=== PATIENT | female | born 1940 | race Caucasian/White ===

== ENCOUNTER 2016-07-27 10:59 | Outpatient (CLI) | payer MEDICARE, OTHER | END 2016-07-27 11:00 | disposition home or self-care (01) | DX: E78.2 Mixed hyperlipidemia (principal); I10 Essential (primary) hypertension; Z79.899 Other long term (current) drug therapy ==

== ENCOUNTER 2016-08-08 13:37 | Outpatient (CLI) | payer MEDICARE, OTHER | END 2016-08-08 13:38 | disposition home or self-care (01) | DX: Z78.0 Asymptomatic menopausal state (principal) ==

== ENCOUNTER 2016-08-08 13:39 | Outpatient (CLI) | payer MEDICARE, OTHER | END 2016-08-08 13:40 | disposition home or self-care (01) | DX: Z12.31 Encounter for screening mammogram for malignant neoplasm of breast (principal); Z80.3 Family history of malignant neoplasm of breast ==

== ENCOUNTER 2016-11-17 19:16 | Outpatient (CLI) | payer MEDICARE, OTHER ==
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
== END 2016-11-17 19:17 | disposition home or self-care (01) ==
LOC: DI 19:16
PROVIDERS: ATTEND Chiropractor
DX: M50.321 Other cervical disc degeneration at C4-C5 level (principal); M47.892 Other spondylosis, cervical region; M51.36 Other intervertebral disc degeneration, lumbar region; M47.896 Other spondylosis, lumbar region; M47.897 Other spondylosis, lumbosacral region
CPT/HCPCS: 72040; 72100

== ENCOUNTER 2017-08-18 13:35 | Outpatient (CLI) | payer MEDICARE, OTHER ==
[2017-08-18 14:32] LABS: EOSINOPHILS # (AUTO) 0.2 10^3/uL (0.0-0.7); EOSINOPHILS % (AUTO) 3.5 %; HGB - HEMOGLOBIN 12.8 g/dL (12.0-16.0); LYMPHOCYTES # (AUTO) 1.3 10^3/uL (1.5-3.5); LYMPHOCYTES % (AUTO) 28.7 %; MEAN CORPUSCULAR HEMOGLOBIN 32.8 pg (27.0-31.0); MEAN CORPUSCULAR HGB CONC 34.1 g/dL (32.0-36.0); MEAN CORPUSCULAR VOLUME 96.3 fL (81.0-99.0); MEAN PLATELET VOLUME 7.6 fL (7.9-10.8); MONOCYTES # (AUTO) 0.5 10^3/uL (0.0-1.0); MONOCYTES % (AUTO) 11.4 %; NEUTROPHILS # (AUTO) 2.5 10^3/uL (1.5-6.6); NEUTROPHILS % (AUTO) 55.4 %; PLT - PLATELET COUNT 326 10^3/uL (130-450); RED CELL DISTRIBUTION WIDTH 13.6 % (12.0-15.0); WHITE BLOOD COUNT 4.6 x10^3/uL (4.8-10.8)
[2017-08-18 14:51] LABS: ALBUMIN 3.9 g/dL (3.2-5.5); ALKALINE PHOSPHATASE 60 IU/L (42-121); ALT ALANINE AMINOTRANSFERASE 23 IU/L (10-60); AST ASPARTATE AMINOTRANSFERASE 26 IU/L (10-42); BUN - BLOOD UREA NITROGEN 21 mg/dL (6-20); CALCIUM 9.6 mg/dL (8.5-10.3); CARBON DIOXIDE - CO2 26 mmol/L (21-32); CHLORIDE 100 mmol/L (101-111); CHOL/HDL RATIO 2.4 (<4.4); CHOLESTEROL 198 mg/dL; GFR - MDRD 54 (>89); GLUCOSE 94 mg/dL (70-100); HDL CHOLESTEROL 83 mg/dL; LDL CHOLESTEROL,CALCULATED 106 mg/dL; LDL/HDL RATIO 1.3 (<4.4); SODIUM 136 mmol/L (135-145); TOTAL PROTEIN 7.8 g/dL (6.7-8.2); VLDL CHOLESTEROL 9 mg/dL
== END 2017-08-18 13:36 | disposition home or self-care (01) ==
LOC: LAB 13:35
PROVIDERS: ATTEND Nurse Practitioner Primary Care
DX: I10 Essential (primary) hypertension (principal); E78.5 Hyperlipidemia, unspecified; Z79.899 Other long term (current) drug therapy
CPT/HCPCS: 36415; 80053; 80061; 83721; 84443; 85025

== ENCOUNTER 2018-08-14 09:15 | Outpatient (CLI) | payer MEDICARE, OTHER ==
[2018-08-14 18:16] LABS: BASOPHILS # (AUTO) 0.1 10^3/uL (0.0-0.1); BASOPHILS % (AUTO) 3.2 %; EOSINOPHILS # (AUTO) 0.1 10^3/uL (0.0-0.7); EOSINOPHILS % (AUTO) 2.6 %; LYMPHOCYTES % (AUTO) 23.8 %; MEAN CORPUSCULAR HGB CONC 32.5 g/dL (32.0-36.0); MEAN CORPUSCULAR VOLUME 98.4 fL (81.0-99.0); MEAN PLATELET VOLUME 8.2 fL (7.9-10.8); MONOCYTES # (AUTO) 0.4 10^3/uL (0.0-1.0); MONOCYTES % (AUTO) 8.7 %; NEUTROPHILS # (AUTO) 2.6 10^3/uL (1.5-6.6); NEUTROPHILS % (AUTO) 61.7 %; PLT - PLATELET COUNT 275 10^3/uL (130-450); RED BLOOD COUNT 4.07 10^6/uL (4.20-5.40); RED CELL DISTRIBUTION WIDTH 13.6 % (12.0-15.0); WHITE BLOOD COUNT 4.2 x10^3/uL (4.8-10.8)
[2018-08-14 18:51] LABS: ALBUMIN 3.9 g/dL (3.2-5.5); ALBUMIN/GLOBULIN RATIO 1.1 (1.0-2.2); ALKALINE PHOSPHATASE 65 IU/L (42-121); ALT ALANINE AMINOTRANSFERASE 23 IU/L (10-60); AST ASPARTATE AMINOTRANSFERASE 32 IU/L (10-42); BUN - BLOOD UREA NITROGEN 23 mg/dL (6-20); CALCIUM 9.3 mg/dL (8.5-10.3); CARBON DIOXIDE - CO2 29 mmol/L (21-32); CHLORIDE 100 mmol/L (101-111); CHOL/HDL RATIO 2.5 (<4.4); CHOLESTEROL 187 mg/dL; CREATININE 0.9 mg/dL (0.4-1.0); GFR - MDRD 61 (>89); GLUCOSE 94 mg/dL (70-100); HDL CHOLESTEROL 76 mg/dL; LDL CHOLESTEROL,CALCULATED 101 mg/dL; LDL/HDL RATIO 1.3 (<4.4); SODIUM 138 mmol/L (135-145); TOTAL PROTEIN 7.3 g/dL (6.7-8.2); VLDL CHOLESTEROL 10 mg/dL
== END 2018-08-14 09:16 | disposition home or self-care (01) ==
LOC: LAB.F 09:15
PROVIDERS: ATTEND Nurse Practitioner Primary Care
DX: I10 Essential (primary) hypertension (principal); Z79.899 Other long term (current) drug therapy; E78.5 Hyperlipidemia, unspecified
CPT/HCPCS: 36415; 80053; 80061; 83721; 85025

== ENCOUNTER 2019-01-22 16:30 | Outpatient (CLI) | payer MEDICARE, OTHER ==
--- NOTE | 2019-01-25 09:06 | Mammography Report ---
Reason: SCREENING FOR MALIGNANT NEOPLASM OF BREAST Procedure Date: 01/22/2019 Accession Number: [id number] / [id number] Procedure: DION - Screening Mammo w/Tor CPT Code: FULL RESULT: EXAM: Screening Mammo w/Tor DATE: 01/22/2019 5:02 PM CLINICAL HISTORY: Screening encounter. Family history of breast cancer in the mother at the age of 70. TECHNIQUE: (B) - Bilateral CC and MLO views were obtained. COMPARISON: 08/08/2016 through 05/18/2013 PARENCHYMAL PATTERN: (A) - The breast(s) demonstrate(s) scattered fibroglandular densities. FINDINGS: A few typically benign appearing intramammary lymph nodes are again seen. There are no suspicious masses, calcifications, or areas of distortion. IMPRESSION: Benign findings. BI-RADS category 2. RECOMMENDATION: (ANNUAL) - Recommend routine annual screening mammography. BI-RADS CATEGORY: (2) - Benign Findings. STANDARD QUALIFYING STATEMENTS: 1. This examination was not reviewed with the aid of Computer-Aided Detection (CAD). 2. A negative or benign imaging report should not preclude biopsy if clinically suspicious findings are present. 3. Dense breasts may obscure an underlying neoplasm. 4. This examination was reviewed with the aid of 3D breast imaging (tomosynthesis).
== END 2019-01-22 16:31 | disposition home or self-care (01) ==
LOC: DI 16:30
PROVIDERS: ATTEND Family Medicine
DX: Z12.31 Encounter for screening mammogram for malignant neoplasm of breast (principal); Z80.3 Family history of malignant neoplasm of breast
CPT/HCPCS: 77063; 77067

== ENCOUNTER 2019-02-03 09:32 | Outpatient (CLI) | payer MEDICARE, OTHER | END 2019-02-03 09:33 | disposition critical access hospital (66) | LOC: EMS 09:32 | PROVIDERS: ATTEND Surgery | DX: S09.93XA Unspecified injury of face, initial encounter (principal); S01.511A Laceration without foreign body of lip, initial encounter; W01.0XXA Fall on same level from slipping, tripping and stumbling without subsequent striking against object, initial encounter; Y93.K1 Activity, walking an animal; Y92.414 Local residential or business street as the place of occurrence of the external cause | CPT/HCPCS: A0425; A0429 ==

== ENCOUNTER 2019-02-03 10:01 | Emergency (ER) | payer MEDICARE, OTHER ==
[2019-02-03] MEDS ORDERED: TETANUS/DIPHTHERIA/PERTUSSIS 0.5 ML SYRINGE IM ONE (10:47)
--- NOTE | 2019-02-03 10:47 | ED Physician Documentation ---
History of Present Illness - Stated complaint Stated Complaint: GLF - Chief complaint Chief Complaint: Trauma Hd/Nk - History obtained from History obtained from: Patient, EMS - History of Present Illness Timing: Today Pain level max: 7 Pain level now: 5 - Additonal information Additional information: 78-year-old female was walking her dog today when she tripped fell, landing on the left side of her face. No loss of consciousness. No vomiting. Placed in a cervical collar by EMS. Unknown last tetanus. Worse with movement and palpation. No numbness or tingling. 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 HEENT: Cataracts - Present Medications Home Medications: Ambulatory Orders Medication Instructions Recorded Confirmed Amlodipine Besylate [Norvasc] 2.5 tab PO DAILY 05/25/14 09/27/15 Triamterene/Hydrochlorothiazid 0.5 tab PO DAILY 09/26/15 09/27/15 [Triamterene-Hctz 37.5-25 mg Cp] Glucosam/Chondr-MSM#6/Manganes 1 tab PO 09/27/15 [Glucosamine-Chondroitin Sftgl] Cephalexin [Keflex] 500 mg PO Q6H #40 capsule 02/03/19 - Allergies Allergies/Adverse Reactions: Allergies Allergy/AdvReac Type Severity Reaction Status Date / Time meperidine HCl * Allergy Nausea Verified 02/03/19 10:13 [From Demerol] Sulfa (Sulfonamide Allergy Unknown Verified 02/03/19 10:13 Antibiotics) Narcot AdvReac Mild Nausea Uncoded 02/03/19 10:13 - Social History Does the pt smoke?: No Smoking Status: Never smoker Does the pt drink ETOH?: Yes PD ED PE NORMAL - Vitals Vital signs reviewed: Yes - General General: Alert and oriented X 3, No acute distress, Well developed/nourished - HEENT HEENT: PERRL, EOMI, Ears normal, Moist mucous membranes, Pharynx benign, Dentition benign - Neck Neck: Supple, no meningeal sign, No bony TTP - Cardiac Cardiac: RRR, Strong equal pulses - Respiratory Respiratory: No respiratory distress, Clear bilaterally - Abdomen Abdomen: Soft, Non tender, Non distended - Back Back: No spinal TTP - Derm Derm: Warm and dry - Extremities Extremities: No tenderness to palpate, Normal ROM s pain - Neuro Neuro: Alert and oriented X 3, cutter plastics rolls 2-12 intact, No motor deficit, No sensory deficit - Psych Psych: Normal mood, Normal affect - Free text exam Free text exam: diffuse L sided facial abrasions and upper lip abrasions. ecchymosis to L orbit. Results - Vitals Vitals: Vital Signs - 24 hr 02/03/19 02/03/19 02/03/19 10:10 12:13 13:36 Temperature 35.7 C L Heart Rate 61 56 L 113 H Respiratory 14 18 16 Rate Blood Pressure 178/89 H 169/84 H 166/117 H O2 Saturation 96 98 98 Oxygen O2 Source Room air - Rads (name of study) head Ct Radiology: Prelim report reviewed, EMP read contemporaneously, See rad report (1. No intracranial hemorrhage, mass-effect, CT evidence of acute infarct, or other acute intracranial abnormality. 2. Focal soft tissue swelling/subcutaneous hematoma in the left frontal region measuring approximately 6.0 x 1.3 cm. 3. Please see separately reported maxillofacial CT and cervical spine CT for additional evaluation. ) maxillofacial CT Radiology: Prelim report reviewed, EMP read contemporaneously, See rad report (No acute fracture. Soft tissue edema/hematoma in the left periorbital region and adjacent anterior scalp. ) cervical spine CT Radiology: Prelim report reviewed, EMP read contemporaneously, See rad report ( No fracture or other acute osseous abnormality of the cervical spine. 2. Mild to moderate degenerative disk changes of the cervical spine, most advanced at the C6-C7 level. There is mild central canal narrowing at the C6-C7 level. There are moderate to severe bilateral degenerative facet changes. ) PD MEDICAL DECISION MAKING - ED course Complexity details: reviewed results, considered differential, d/w patient ED course: No acute findings on CT scans. Diffuse facial abrasions. There is one small laceration above the lip. Does not involve the vermilion border. Gravel was cleansed from the face. Wounds were irrigated. A small amount of Dermabond was applied where it could be. She will likely have extensive scarring and this was shared with the patient. Will place on Keflex due to the large surface abrasions. No evidence of fracture. Warnings of infection and instructions on wound care given at bedside. Also counseled on how to minimize scarring. Patient counseled regarding signs and symptoms for which I believe and urgent re-evaluation would be necessary. Patient with good understanding of and agreement to plan and is comfortable going home at this time This document was made in part using voice recognition software. While efforts are made to proofread this document, sound alike and grammatical errors may occur. Departure - Departure Disposition: 01 Home, Self Care Clinical Impression: Facial abrasion Qualifiers: Encounter type: initial encounter Qualified Code(s): S00.81XA - Abrasion of other part of head, initial encounter Facial laceration Qualifiers: Encounter type: initial encounter Qualified Code(s): S01.81XA - Laceration without foreign body of other part of head, initial encounter Condition: Good Instructions: ED Abrasion, ED Laceration Facial Skin Glue Follow-Up: Beau Bazan MD [Primary Care Provider] - Within 1 week Prescriptions: Cephalexin [Keflex] 500 mg PO Q6H #40 capsule Comments: Return if you worsen. Keep the wounds clean. Take all antibiotics until gone. The glue will dissolve in a few days. Discharge Date/Time: 02/03/19 13:37
--- NOTE | 2019-02-03 11:59 | CT Report ---
Reason: fall, head pain Procedure Date: 02/03/2019 Accession Number: [id number] / [id number] Procedure: CT - HEAD WO CPT Code: FULL RESULT: EXAM: CT HEAD EXAM DATE: 02/03/2019 11:44 AM. CLINICAL HISTORY: Fall, head pain. COMPARISON: CT FACIAL BONES W/O 02/03/2019 11:[address] CERVICAL SPINE W/O 02/03/2019 11:30 AM. TECHNIQUE: Multiaxial CT images were obtained from the foramen magnum to the vertex. Reformats: Sagittal and coronal. IV contrast: None. In accordance with CT protocol optimization, one or more of the following dose reduction techniques were utilized for this exam: automated exposure control, adjustment of mA and/or KV based on patient size, or use of iterative reconstructive technique. FINDINGS: Parenchyma: No intraparenchymal hemorrhage. No evidence of mass, midline shift, or CT findings of infarction. Soto-white differentiation is distinct. Extraaxial Spaces: Normal for age. No subdural or epidural collections identified. Ventricles: Normal in size and position. Sinuses and Orbits: Imaged paranasal sinuses, orbits, and mastoids show no significant abnormality. Bones: No evidence of fracture or calvarial defect. Please use separately reported maxillofacial CT for additional evaluation. Other: There is a subcutaneous hematoma/area of soft tissue swelling overlying the left frontal region. This measures approximately 6.0 x 1.3 cm (series 2 image 18). IMPRESSION: 1. No intracranial hemorrhage, mass-effect, CT evidence of acute infarct, or other acute intracranial abnormality. 2. Focal soft tissue swelling/subcutaneous hematoma in the left frontal region measuring approximately 6.0 x 1.3 cm. 3. Please see separately reported maxillofacial CT and cervical spine CT for additional evaluation. [facility]
--- NOTE | 2019-02-03 12:09 | CT Report ---
Reason: fall, L facial pain Procedure Date: 02/03/2019 Accession Number: [id number] / [id number] Procedure: CT - MAXILLOFACIAL WO CPT Code: FULL RESULT: EXAM: CT MAXILLOFACIAL WITHOUT CONTRAST EXAM DATE: 02/03/2019 11:44 AM. CLINICAL HISTORY: Pain post injury after a fall. COMPARISONS: None. TECHNIQUE: Thin-section axial images were acquired of the face without contrast. Post-processing: Coronal and sagittal reformats. Other: None. In accordance with CT protocol optimization, one or more of the following dose reduction techniques were utilized for this exam: automated exposure control, adjustment of mA and/or KV based on patient size, or use of iterative reconstructive technique. FINDINGS: Left anterior scalp/forehead swelling and edema with probable subcutaneous hematoma extending inferiorly into the left preseptal periorbital region. No underlying skull fracture. No acute facial bone fracture. No fracture or dislocation of the mandible. Multiple periapical lucencies consistent with dental decay, most evident in the left maxilla and right mandible.. No acute sinus or mastoid fluid opacity. Prominent chronic degenerative changes in the upper cervical spine. IMPRESSION: No acute fracture. Soft tissue edema/hematoma in the left periorbital region and adjacent anterior scalp. [facility]
--- NOTE | 2019-02-03 12:12 | CT Report ---
Reason: fall, neck pain Procedure Date: 02/03/2019 Accession Number: [id number] / [id number] Procedure: CT - CERVICAL SPINE WO CPT Code: FULL RESULT: EXAM: CT CERVICAL SPINE WITHOUT CONTRAST DATE: 02/03/2019 11:44 AM. HISTORY: Fall, neck pain. COMPARISONS: HEAD W/O 02/03/2019 11:30 AM. TECHNIQUE: Thin-section axial images were acquired of the cervical spine without contrast. Post-processing: Coronal and sagittal reformats. Other: None. In accordance with CT protocol optimization, one or more of the following dose reduction techniques were utilized for this exam: automated exposure control, adjustment of mA and/or KV based on patient size, or use of iterative reconstructive technique. FINDINGS: Alignment: No scoliosis or spondylolisthesis. Bones: No fracture or bone lesion. Interspace Levels/Facets: There are mild degenerative changes at the atlantodental joint. There are mild to moderate degenerative disk changes throughout the cervical spine, most advanced at the C6-C7 level. There are moderate to severe degenerative facet changes throughout the cervical spine. There is fusion at the left C3-C4 facet. There is mild central canal narrowing at the C6-C7 level. Musculature: Normal. No fatty atrophy. Other: The paravertebral and prevertebral soft tissues are unremarkable. The lung apices are clear. IMPRESSION: 1. No fracture or other acute osseous abnormality of the cervical spine. 2. Mild to moderate degenerative disk changes of the cervical spine, most advanced at the C6-C7 level. There is mild central canal narrowing at the C6-C7 level. There are moderate to severe bilateral degenerative facet changes. [facility]
[2019-02-03] MEDS ORDERED: LIDOCAINE OINTMENT 5% 35.44 GM TUBE TOP STA (12:23)
[2019-02-03] MEDS ORDERED: cephALEXin 250 MG CAPSULE PO STA (13:03)
[2019-02-03 13:37] VITALS: BP 166/117
== END 2019-02-03 13:37 | disposition home or self-care (01) ==
LOC: EDUNIT# → ED 10:01
DX: S00.81XA Abrasion of other part of head, initial encounter (principal); W01.0XXA Fall on same level from slipping, tripping and stumbling without subsequent striking against object, initial encounter; Y93.K1 Activity, walking an animal; I10 Essential (primary) hypertension
CPT/HCPCS: 70450; 70486; 72125; 90471; 90715; 99284; A9270

== ENCOUNTER 2020-11-02 14:06 | Emergency (ER) | payer MEDICARE, OTHER ==
[2020-11-02] MEDS ORDERED: LIDOCAINE 1%-EPI 1:100000 20 ML MDV SUBQ STA (14:23)
[2020-11-02] MEDS ORDERED: LIDOCAINE-EPINEPH-TETRACAINE 3 ML SYRINGE TOP STA (14:23)
[2020-11-02] MEDS ORDERED: cephALEXin 250 MG CAPSULE PO STA (14:23)
--- NOTE | 2020-11-02 14:24 | ED Physician Documentation ---
PD HPI LOWER EXT INJURY - Stated complaint Stated Complaint: RT LEG LAC - History obtained from History obtained from: Patient - Additional information Additional information: Hit by a car door and then fell and then the door kind of rolled over her and has a large laceration on the right leg. No other injuries. She is able to walk and bear weight fine. Last tetanus was January 2019. 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 HEENT: Cataracts - Present Medications Home Medications: Ambulatory Orders Medication Instructions Recorded Confirmed Amlodipine Besylate [Norvasc] 2.5 tab PO DAILY 05/25/14 09/27/15 Triamterene/Hydrochlorothiazid 0.5 tab PO DAILY 09/26/15 09/27/15 [Triamterene-Hctz 37.5-25 mg Cp] Glucosam/Chondr-Msm6/Manganese 1 tab PO 09/27/15 [Glucosamine-Chondroitin Sftgl] cephALEXin [Keflex] 500 mg PO Q6H #40 capsule 02/03/19 HYDROcod/ACETAM 5/325 [Standard 5/325] 1 - 2 tab PO Q6H PRN #15 tablet 11/02/20 Ondansetron Odt [Zofran] 4 mg TL Q6H PRN #10 tablet 11/02/20 cephALEXin [Keflex] 500 mg PO Q6H #28 cap 11/02/20 - Allergies Allergies/Adverse Reactions: Allergies Allergy/AdvReac Type Severity Reaction Status Date / Time meperidine HCl * Allergy Nausea Verified 11/02/20 14:29 [From Demerol] Sulfa (Sulfonamide Allergy Unknown Verified 11/02/20 14:29 Antibiotics) Narcot AdvReac Mild Nausea Uncoded 11/02/20 14:29 - Social History Does the pt smoke?: No Smoking Status: Never smoker Does the pt drink ETOH?: Yes PD ED PE NORMAL - Vitals Vital signs reviewed: Yes - General General: Alert and oriented X 3, No acute distress - HEENT HEENT: PERRL, EOMI - Neck Neck: Supple, no meningeal sign, No bony TTP - Extremities Extremities: Other (12cm L-shaped laceration on the anteromedial upper right valles without bony tenderness. Tendon function in the foot is all intact as is sensation.) - Neuro Neuro: Alert and oriented X 3, Normal speech Results - Vitals Vitals: Vital Signs - 24 hr 11/02/20 14:19 Temperature 98.5 C H Heart Rate 68 Respiratory 12 Rate Blood Pressure 155/63 H O2 Saturation 100 Oxygen O2 Source Room air Procedures - Laceration (location) R valles Length in cm: 12 Wound type: Irregular, Into subcut fat, Into muscle Neurovascular status: Sensory intact, Motor intact, Vascular intact Tendon involvement: Tendon intact Anesthesia: Lidocaine 1% with epi Wound preparation: Hibiclens, Irrigated copiously NS Deep layer closure: Vicryl, size #-0 - enter number (4-0), # sutures - enter number (3) Skin layer closure: [place] Other: Patient tolerated well, No complications, Neurovascular intact, Tetanus UTD PD MEDICAL DECISION MAKING - ED course ED course: 80-year-old woman who is up-to-date on tetanus has a large right valles laceration measuring 12 cm. It is into subcutaneous fat and some muscular involvement although function seems normal. Deep layer was closed with Vicryl and then tyler to the skin layer. Given the extent of laceration and some devitalization as well as a high tension area she is placed on prophylactic antibiotics. Departure - Departure Disposition: 01 Home, Self Care Clinical Impression: Laceration Condition: Good Record reviewed to determine appropriate education?: Yes Instructions: ED Laceration All Prescriptions: cephALEXin [Keflex] 500 mg PO Q6H #28 cap HYDROcod/ACETAM 5/325 [Standard 5/325] 1 - 2 tab PO Q6H PRN #15 tablet PRN Reason: Pain Ondansetron Odt [Zofran] 4 mg TL Q6H PRN #10 tablet PRN Reason: Nausea / Vomiting Comments: Prescription sent electronically to [facility] in [place]. Follow-up with your primary care physician on or around Friday for wound check and then in 3 weeks for staple removal. Keep current dressing on until Friday morning. After that okay to leave open to air and shower. I am prescribing a short course of narcotic pain medication for you. These are potentially dangerous and addictive medications that should be used carefully. These medications may constipate you. Take an jyow-rnb-fpiepxc stool softener (docusate) twice daily with plenty of water while taking these medications. If you go 24 hours without a bowel movement, take bcyu-ojh-uueprri miralax, per package instructions. Do not drink or drive while taking these medications. If you received narcotic or sedating medications while in the emergency department, do not drive for 24 hours. Store this medication in a safe, secure place and out of reach of children. It is a violation of federal law to give or sell this medication to another person or to use in a manner other than prescribed. The ED will not refill narcotic prescriptions, including prescriptions lost or stolen. To dispose of unwanted medications: 1. [facility] at [address] has a medication drop box. They accept prescription medications (in pill form) Friday through Friday 9:00 a.m. to 5:00 p.m. 2. The [facility] accepts prescription medications (in pill form only) for disposal year round. Call for more information. 3. Contact the [facility] for the next [facility] sponsored prescription drug collection event. , [phone], or [phone]; Note that many narcotic pain relievers also contain Tylenol/acetaminophen. Please ensure that your total dose of acetaminophen from all sources does not exceed 3 g (3000 mg) per day. Discharge Date/Time: 11/02/20 15:53
[2020-11-02 14:29] VITALS: BP 155/63
== END 2020-11-02 15:53 | disposition home or self-care (01) ==
LOC: ED 14:06
DX: S81.811A Laceration without foreign body, right lower leg, initial encounter (principal); S86.821A Laceration of other muscle(s) and tendon(s) at lower leg level, right leg, initial encounter; W26.8XXA Contact with other sharp object(s), not elsewhere classified, initial encounter; Y93.89 Activity, other specified; I10 Essential (primary) hypertension
CPT/HCPCS: 12034; 99282; 99283; A9270

== ENCOUNTER 2020-12-26 09:39 | Outpatient (CLI) | payer MEDICARE, OTHER | END 2020-12-26 23:59 | disposition home or self-care (01) | LOC: LAB.WCP 09:39 | PROVIDERS: ATTEND Family Medicine | DX: S81.801A Unspecified open wound, right lower leg, initial encounter (principal) | CPT/HCPCS: 87070; 87077; 87181; 87205 ==

== ENCOUNTER 2021-01-04 12:37 | Outpatient (CLI) | payer MEDICARE, OTHER ==
--- NOTE | 2021-01-04 17:12 | XRAY Report ---
PROCEDURE: Tib/Fib RT INDICATIONS: UNSP OPEN WOUND RT L LEG TECHNIQUE: 2 views of the tibia and fibula were acquired. COMPARISON: X-ray ankle the 2013 FINDINGS: Bones: No fractures or dislocations. No suspicious bony lesions. Knee arthroplasty is present and appears unremarkable. Soft tissues: No suspicious soft tissue calcifications or masses. IMPRESSION: Osseous structures are unremarkable. Reviewed by: Gaye Kate MD on 01/04/2021 5:11 PM PDT Approved by: Gaye Kate MD on 01/04/2021 5:11 PM PDT Station ID: [id number]
== END 2021-01-04 12:38 | disposition home or self-care (01) ==
LOC: DI 12:37
PROVIDERS: ATTEND Family Medicine
DX: S81.801D Unspecified open wound, right lower leg, subsequent encounter (principal)

== ENCOUNTER 2021-03-05 14:30 | Outpatient (CLI) | payer MEDICARE, OTHER ==
--- NOTE | 2021-03-05 16:35 | Ultrasound Report ---
PROCEDURE: Carotid Doppler Complete INDICATIONS: CAROTID BRUIT TECHNIQUE: Color and pulse Doppler interrogation was performed of both carotid systems, with image documentation and velocity measurements. COMPARISON: None. FINDINGS: Right side: Brachial blood pressure: 160/70 mm Hg. Common carotid artery peak systolic velocity: 47 cm/sec. Internal carotid artery peak systolic velocity: 54 cm/sec. Internal carotid artery end diastolic velocity: 14 cm/sec. External carotid artery peak systolic velocity: 70 cm/sec. ICA/CCA peak systolic ratio: 1.2 . Soto scale imaging description: Mild plaque at the bifurcation. Percent internal carotid artery stenosis: Less than 50% . Vertebral artery: Flow direction is antegrade. Left side: Brachial blood pressure: 164/84 mm Hg. Common carotid artery peak systolic velocity: 67 cm/sec. Internal carotid artery peak systolic velocity: 79 cm/sec. Internal carotid artery end diastolic velocity: 22 cm/sec. External carotid artery peak systolic velocity: 55 cm/sec. ICA/CCA peak systolic ratio: 1.2 . Soto scale imaging description: Mild plaque at the bifurcation Percent internal carotid artery stenosis: Less than 50% . Vertebral artery: Flow direction is antegrade. IMPRESSION: Less than 50% stenosis of the internal carotid arteries bilaterally. The estimate of stenosis included in the report of the imaging study was calculated using the NASCET method Reviewed by: Gaye Kate MD on 03/05/2021 4:34 PM PDT Approved by: Gaye Kate MD on 03/05/2021 4:34 PM PDT Station ID: [id number]
== END 2021-03-05 14:31 | disposition home or self-care (01) ==
LOC: DI 14:30
PROVIDERS: ATTEND Nurse Practitioner Family
DX: R09.89 Other specified symptoms and signs involving the circulatory and respiratory systems (principal); R42 Dizziness and giddiness; Z13.220 Encounter for screening for lipoid disorders
CPT/HCPCS: 36415; 80053; 80061; 81001; 83721; 84443; 85025; 87086; 93880

== ENCOUNTER 2021-03-05 14:33 | Outpatient (CLI) | payer MEDICARE, OTHER ==
[2021-03-05 15:07] LABS: BASOPHILS # (AUTO) 0.1 10^3/uL (0.0-0.1); BASOPHILS % (AUTO) 1.1 %; EOSINOPHILS # (AUTO) 0.3 10^3/uL (0.0-0.7); EOSINOPHILS % (AUTO) 3.9 %; HCT - HEMATOCRIT 41.9 % (37.0-47.0); HGB - HEMOGLOBIN 13.8 g/dL (12.0-16.0); LYMPHOCYTES # (AUTO) 2.2 10^3/uL (1.5-3.5); LYMPHOCYTES % (AUTO) 34.5 %; MEAN CORPUSCULAR HEMOGLOBIN 31.9 pg (27.0-31.0); MEAN CORPUSCULAR HGB CONC 32.9 g/dL (32.0-36.0); MEAN CORPUSCULAR VOLUME 96.8 fL (81.0-99.0); MEAN PLATELET VOLUME 9.1 fL (7.9-10.8); MONOCYTES # (AUTO) 0.6 10^3/uL (0.0-1.0); MONOCYTES % (AUTO) 9.8 %; NEUTROPHILS # (AUTO) 3.2 10^3/uL (1.5-6.6); NEUTROPHILS % (AUTO) 50.4 %; PLT - PLATELET COUNT 305 10^3/uL (130-450); RED BLOOD COUNT 4.33 10^6/uL (4.20-5.40); RED CELL DISTRIBUTION WIDTH 12.9 % (12.0-15.0); WHITE BLOOD COUNT 6.3 x10^3/uL (4.8-10.8)
[2021-03-05 15:17] LABS: ALBUMIN 4.1 g/dL (3.2-5.5); ALBUMIN/GLOBULIN RATIO 1.2 (1.0-2.2); ALKALINE PHOSPHATASE 72 IU/L (42-121); ALT ALANINE AMINOTRANSFERASE 19 IU/L (10-60); AST ASPARTATE AMINOTRANSFERASE 26 IU/L (10-42); BILIRUBIN,TOTAL 0.7 mg/dL (0.2-1.0); BUN - BLOOD UREA NITROGEN 24 mg/dL (6-20); CALCIUM 10.1 mg/dL (8.5-10.3); CARBON DIOXIDE - CO2 28 mmol/L (21-32); CHLORIDE 101 mmol/L (101-111); CHOL/HDL RATIO 2.7 (<4.4); CHOLESTEROL 205 mg/dL; CREATININE 1.1 mg/dL (0.4-1.0); GFR - MDRD 48 (>89); GLUCOSE 98 mg/dL (70-100); HDL CHOLESTEROL 75 mg/dL; LDL CHOLESTEROL,CALCULATED 89 mg/dL; LDL/HDL RATIO 1.2 (<4.4); POTASSIUM 3.8 mmol/L (3.5-5.0); SODIUM 139 mmol/L (135-145); TOTAL PROTEIN 7.6 g/dL (6.7-8.2); TRIGLYCERIDES 203 mg/dL; VLDL CHOLESTEROL 41 mg/dL
[2021-03-05 16:21] LABS: BILIRUBIN,URINE NEGATIVE (NEGATIVE); GLUCOSE, URINE (UA) NEGATIVE (NEGATIVE); KETONES,URINE (UA) TRACE mg/dL (NEGATIVE); LEUKOCYTE ESTERASE, URINE NEGATIVE (NEGATIVE); NITRITE,URINE NEGATIVE (NEGATIVE); OCCULT BLOOD,URINE NEGATIVE (NEGATIVE); PROTEIN,URINE NEGATIVE (NEGATIVE); UROBILINOGEN,URINE 0.2 (NORMAL) E.U./dL (NORMAL)
[2021-03-05 16:32] LABS: CLARITY,URINE CLEAR (CLEAR); RBC,URINE None Seen /HPF (0-5); WBC,URINE 0-3 /HPF (0-5)
[2021-03-05 16:33] LABS: BACTERIA,URINE None Seen /HPF (None Seen); SQUAMOUS EPITHELIAL CELL,UR RARE Squamous (<= Few)
== END 2021-03-05 14:34 | disposition home or self-care (01) ==
LOC: LAB 14:33
PROVIDERS: ATTEND Nurse Practitioner Family
DX: R42 Dizziness and giddiness (principal); Z13.220 Encounter for screening for lipoid disorders
CPT/HCPCS: 36415; 80053; 80061; 81001; 83721; 84443; 85025; 87086

== ENCOUNTER 2021-04-06 11:20 | Outpatient (CLI) | payer MEDICARE, OTHER ==
[2021-04-06 12:03] LABS: ALBUMIN 4.3 g/dL (3.2-5.5); ALBUMIN/GLOBULIN RATIO 1.1 (1.0-2.2); BILIRUBIN,TOTAL 0.7 mg/dL (0.2-1.0); CALCIUM 10.4 mg/dL (8.5-10.3); CREATININE 0.9 mg/dL (0.4-1.0); POTASSIUM 4.3 mmol/L (3.5-5.0); TOTAL PROTEIN 8.1 g/dL (6.7-8.2)
[2021-04-06] MEDS ORDERED: IOVERSOL 320 50 ML VIAL ONE (12:07)
[2021-04-06] MEDS ORDERED: IOVERSOL 320 100 ML VIAL IVP ONE ×2 (12:07→14:15)
--- NOTE | 2021-04-06 14:12 | CT Report ---
PROCEDURE: Abdomen/Pelvis W INDICATIONS: LEFT LOWER QUAD PAIN CONTRAST: IV CONTRAST: Optiray 320 ml: 100 PO CONTRAST: Optiray 320 ml50 TECHNIQUE: After the administration of oral and intravenous contrast, 5 mm thick sections acquired from the diap hragms to the symphysis. 5 mm thick coronal and sagittal reformats were acquired. For radiation dos e reduction, the following was used: automated exposure control, adjustment of mA and/or kV accordin g to patient size. COMPARISON: None. FINDINGS: Image quality: Excellent. ABDOMEN: Lung bases: Lung bases are clear. Heart size is normal. Solid organs: There is a cyst within the right hepatic lobe. Gallbladder appears within normal limits without calcified gallstones. Biliary system is non dilated. The spleen is normal in size. Pancreas enhances normally without peripancreatic fat stranding or fluid collections. No adrenal nodules. K idneys demonstrate no hydronephrosis. Peritoneum and bowel: Stomach and small bowel loops demonstrate normal wall thickness and caliber. No evidence of appendicitis. There is colonic diverticulosis with associated diverticular wall thickeni ng and peridiverticular inflammatory fat stranding in the sigmoid colon consistent with acute diverti culitis. There is associated segmental wall thickening in the sigmoid colon consistent with a colitis . No diverticular abscess or macroscopic free air. No free fluid or air. Nodes and vessels: No retroperitoneal or mesenteric adenopathy by size criteria. Aorta and inferior vena cava are normal in size. Miscellaneous: No ventral hernias. PELVIS: Genitourinary: Bladder wall thickness is normal. The uterus is surgically absent. Miscellaneous: No inguinal hernias or adenopathy. Bones: No suspicious bony lesions. No vertebral body compression fractures. IMPRESSION: 1. Acute diverticulitis in the sigmoid colon without evidence of diverticular abscess or macroscopic free air. 2. Segmental wall thickening of the sigmoid colon likely reflects an associated colitis. Findings reported to Kandi Grijalva PA-C on 04/06/2021 at 2:05 PM. Reviewed by: Terell Cao MD on 04/06/2021 2:11 PM PDT Approved by: Terell Cao MD on 04/06/2021 2:11 PM PDT Station ID: [id number]
[2021-04-06] MEDS ORDERED: IOVERSOL 320 50 ML VIAL PO ONE (14:16)
== END 2021-04-06 11:21 | disposition home or self-care (01) ==
LOC: LAB 11:20 → DI 11:21
PROVIDERS: ATTEND Nurse Practitioner Family
DX: K57.32 Diverticulitis of large intestine without perforation or abscess without bleeding (principal); R93.3 Abnormal findings on diagnostic imaging of other parts of digestive tract; R10.32 Left lower quadrant pain
CPT/HCPCS: 36415; 74177; 80053; Q9967

== ENCOUNTER 2021-04-20 07:17 | Outpatient (CLI) | payer MEDICARE, OTHER ==
--- NOTE | 2021-04-20 16:17 | Ultrasound Report ---
PROCEDURE: Abdomen Limited INDICATIONS: LIVER CYST TECHNIQUE: Real-time focused scanning was performed of the abdomen, with image documentation. COMPARISON: CT abdomen pelvis 04/06/2021 FINDINGS: Liver measures 14.6 cm. It is mildly increased in echogenicity. There is a focus of hypoechogenicity within the posterior liver measuring 3.0 x 2.8 x 3.0 cm. Gallbladder is distended without stones. Wal l thickness is within normal limits measuring 2 mm. Common bile duct measures 2 mm. Visualized portio ns of the pancreas and inferior vena cava are unremarkable. IMPRESSION: Hepatic cyst. Reviewed by: Gaye Kate MD on 04/20/2021 4:16 PM PDT Approved by: Gaye Kate MD on 04/20/2021 4:16 PM PDT Station ID: [id number]
== END 2021-04-20 07:18 | disposition home or self-care (01) ==
LOC: DI 07:17
PROVIDERS: ATTEND Nurse Practitioner Family
DX: K76.89 Other specified diseases of liver (principal)

== ENCOUNTER 2021-07-17 12:06 | Outpatient (CLI) | payer MEDICARE, OTHER ==
[2021-07-17] MEDS ORDERED: iohexoL-300 100 ML VIAL ONE (12:25)
[2021-07-17] MEDS ORDERED: IOPAMIDOL-300 50 ML VIAL ONE (12:25)
[2021-07-17 12:39] LABS: CREATININE 0.9 mg/dL (0.4-1.0)
--- NOTE | 2021-07-17 16:22 | CT Report ---
PROCEDURE: Abdomen/Pelvis W INDICATIONS: DIVERTICULITIS OF COLON CONTRAST: IV CONTRAST: Isovue 300 ml: 100 PO CONTRAST: Isovue 300 ml50 TECHNIQUE: After the administration of weight appropriate dose of intravenous contrast, 5 mm thick sections acqu ired from the diaphragms to the symphysis. 5 mm thick coronal and sagittal reformats were acquired. For radiation dose reduction, the following was used: automated exposure control, adjustment of mA and/or kV according to patient size. Oral contrast was also administered. COMPARISON: 04/06/2021 FINDINGS: Image quality: Excellent. ABDOMEN: Lung bases: Minimal bibasilar atelectasis. Heart size is normal. Solid organs: Liver and spleen are normal in size and enhancement. Stable hepatic hypodensities com patible with cysts. Gallbladder is unremarkable. Biliary system is non dilated. Pancreas enhances n ormally. No adrenal nodules. Kidneys demonstrate normal size and enhancement, without hydronephrosi s. Peritoneum and bowel: Extensive colonic diverticula most pronounced in the sigmoid colon. Previously described acute sigmoid diverticulitis has resolved. Previously seen mild segmental wall thickening o f the sigmoid colon has also decreased in conspicuity. No evidence for bowel obstruction. No other ar eas to suggest acute inflammatory changes. No suspicious areas of abnormal wall thickening. No free f luid or air. Nodes and vessels: No retroperitoneal or mesenteric adenopathy by size criteria. Aorta and inferior vena cava are normal in size. Atherosclerotic calcifications are present. Miscellaneous: No ventral hernias. Small fat-containing umbilical hernia without acute inflammation . PELVIS: Genitourinary: Bladder wall thickness is normal. Miscellaneous: No inguinal hernias or adenopathy. Bones: No suspicious bony lesions. No acute vertebral body compression fractures. Moderate multile patrice spondylosis of the imaged spine. IMPRESSION: 1. Interval resolution of previously described sigmoid diverticulitis. Interval decrease in prominenc e of segmental wall thickening of the sigmoid colon. No suspicious asymmetric wall thickening identif ied. However, consider routine screening colonoscopy to exclude possible underlying neoplastic proces s. Otherwise, no acute abnormalities identified in the abdomen or pelvis. 2. Stable hepatic cysts. 3. Atherosclerosis. Reviewed by: Rich Crouch MD on 07/17/2021 4:21 PM PST Approved by: Rich Crouch MD on 07/17/2021 4:21 PM PST Station ID: [id number]
[2021-07-17] MEDS ORDERED: iohexoL-300 100 ML VIAL IVP ONE (19:58)
[2021-07-17] MEDS ORDERED: IOPAMIDOL-300 50 ML VIAL PO ONE (19:58)
== END 2021-07-17 12:07 | disposition home or self-care (01) ==
LOC: LAB 12:06 → DI 12:07
PROVIDERS: ATTEND Physician Assistant
DX: K57.32 Diverticulitis of large intestine without perforation or abscess without bleeding (principal); K76.89 Other specified diseases of liver; I70.209 Unspecified atherosclerosis of native arteries of extremities, unspecified extremity
CPT/HCPCS: 36415; 74177; 82565; Q9967

== ENCOUNTER 2021-09-14 14:08 | Outpatient (CLI) | payer MEDICARE, OTHER ==
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
== END 2021-09-14 14:09 | disposition home or self-care (01) ==
LOC: DI.S 14:08
PROVIDERS: ATTEND Chiropractor
DX: M47.812 Spondylosis without myelopathy or radiculopathy, cervical region (principal); M43.13 Spondylolisthesis, cervicothoracic region; M51.36 Other intervertebral disc degeneration, lumbar region; M47.816 Spondylosis without myelopathy or radiculopathy, lumbar region; M43.16 Spondylolisthesis, lumbar region

== ENCOUNTER 2022-06-23 08:23 | Emergency (ER) | payer MEDICARE, OTHER ==
[2022-06-23 08:45] VITALS: BP 143/61
--- NOTE | 2022-06-23 08:51 | ED Physician Documentation ---
PD HPI UPPER EXT INJURY - Stated complaint Stated Complaint: LFT HAND INJURIED - Chief complaint Chief Complaint: Trauma Ext - History obtained from History obtained from: Patient - History of Present Illness Location: Left, Hand, Other (She also struck her face with abrasions and upper lip laceration. She states she tripped and fell forward.) Type of injury: Fall Timing - onset: Yesterday Worsened by: Moving, Palpating Associated symptoms: Swelling. No: Weakness, Numbness Recently seen: Clinic (She did go to the walk-in clinic after it happened. Evaluation did not suggest concussion. She has bruising and abrasions on the face. Main injury of the left hand but they did not have x-ray available and referred to the ER today.) Review of Systems Eyes: reports: Other (denies diplopia). denies: Decreased vision, Photophobia Cardiac: denies: Chest pain / pressure GI: denies: Abdominal Pain Neurologic: reports: Head injury. 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 : None HEENT: None Psych: None Musculoskeletal: Osteoarthritis Derm: None - Past Surgical History Past Surgical History: Yes General: Colonoscopy Ortho: Knee replacement, Arthroscopic surgery /POCKET CLOSER: Hysterectomy HEENT: Cataracts - Present Medications Home Medications: Ambulatory Orders Medication Instructions Recorded Confirmed Triamterene/Hydrochlorothiazid 0.5 tab PO DAILY 09/26/15 06/23/22 [Triamterene-Hctz 37.5-25 mg Cp] Glucosam/Chondr-Msm6/Manganese 1 tab PO DAILY 09/27/15 06/23/22 [Glucosamine-Chondroitin Sftgl] Losartan Potassium [Cozaar] 100 mg PO DAILY 06/23/22 06/23/22 - Allergies Allergies/Adverse Reactions: Allergies Allergy/AdvReac Type Severity Reaction Status Date / Time meperidine HCl * Allergy Nausea Verified 06/23/22 08:41 [From Demerol] Sulfa (Sulfonamide Allergy Unknown Verified 06/23/22 08:41 Antibiotics) Narcot AdvReac Mild Nausea Uncoded 11/02/20 14:29 - Social History Does the pt smoke?: No Smoking Status: Never smoker Does the pt drink ETOH?: Yes Does the pt have substance abuse?: No - Immunizations Immunizations are current?: Yes PD ED PE NORMAL - Vitals Vital signs reviewed: Yes - General General: Alert and oriented X 3, No acute distress, Well developed/nourished, Other (The patient has obvious periorbital bruising both sides. Minimal nasal tenderness. Abrasion right forehead with some release gapping. Upper lip abrasion/laceration without distortion of any teeth.) - HEENT HEENT: EOMI (Without pain or diplopia.) - Derm Derm: Normal color, Warm and dry - Extremities Extremities: Other (The left hand is tender through the dorsal and ulnar sides over the fourth and fifth metacarpals. The wrist itself is not tender. There is swelling and some early ecchymotic changes in the hand. Normal color and capillary refill.) - Neuro Neuro: Alert and oriented X 3, No motor deficit, No sensory deficit, Normal speech Results - Vitals Vitals: Vital Signs - 24 hr 06/23/22 08:41 Temperature 36.5 C Heart Rate 70 Respiratory 16 Rate Blood Pressure 143/61 H O2 Saturation 98 Oxygen O2 Source Room air - Rads (name of study) left hand Radiology: Prelim report reviewed, EMP read indepedently, See rad report PD Medical Decision Making - ED course Complexity details: reviewed results (view of xray independently by me as well shows no fractures. ), considered differential (Concern for fracture versus sprain or contusion of the hand. We will get an x-ray to evaluate. The patient has facial abrasions and bruising without any signs of orbital injury nor concussive.), d/w patient Departure - Departure Disposition: 01 Home, Self Care Clinical Impression: Fall, accidental, Hand sprain, Facial contusion, Abrasion of face Condition: Stable Record reviewed to determine appropriate education?: Yes Instructions: ED Sprain Hand Comments: Your hand x-ray is good without any signs of fractures. Obvious soft tissue swelling. Activity as tolerated with your hand. Rest ice and elevate it to help with some of the swelling. You could use a wrap on there to. Regarding your abrasions, continue with cleaning soap and water and applying ointment. Recheck of infection. The bruising around your eyes and face should resorb over a week or more and going from purple to green to yellow and slowly away. Discharge Date/Time: 06/23/22 10:01
[2022-06-23] MEDS ORDERED: BACITRACIN ZINC OINT 1 PACKET TOP STA (08:59)
--- NOTE | 2022-06-23 09:34 | XRAY Report ---
PROCEDURE: Hand 3 View LT INDICATIONS: fall onto left hand TECHNIQUE: 3 views of the hand(s) acquired. COMPARISON: None FINDINGS: Bones: No fractures or dislocations. No suspicious bony lesions. Joint space narrowing and small m arginal osteophytes noted predominantly involving the distal interphalangeal joints. No marginal eros ions present. First carpometacarpal and triscaphe joint space and narrowing with subchondral sclerosi s present. Soft tissues: No suspicious soft tissue calcifications. Dorsal soft tissue swelling without radiopa que foreign body IMPRESSION: Soft tissue swelling without fracture or foreign body Moderate osteoarthritis Reviewed by: Yrn Avila MD on 06/23/2022 8:33 AM [place] Approved by: Yrn Avila MD on 06/23/2022 8:33 AM [place] Station ID: [id number]
== END 2022-06-23 10:01 | disposition home or self-care (01) ==
LOC: ED 08:23
DX: S63.92XA Sprain of unspecified part of left wrist and hand, initial encounter (principal); S00.12XA Contusion of left eyelid and periocular area, initial encounter; S00.11XA Contusion of right eyelid and periocular area, initial encounter; S00.81XA Abrasion of other part of head, initial encounter; S00.511A Abrasion of lip, initial encounter; W18.09XA Striking against other object with subsequent fall, initial encounter
CPT/HCPCS: 73130; 99283; A9270

== ENCOUNTER 2022-07-12 10:38 | Outpatient (CLI) | payer MEDICARE, OTHER ==
--- NOTE | 2022-07-12 13:58 | DEXA Report ---
PROCEDURE: Dexa Spine and/or Hip INDICATIONS: POST MENOPAUSAL TECHNIQUE: Dual energy x-ray absorptiometry (DXA) was performed on a [employer] System. Regions measur ed are the AP Spine, femoral neck, and if needed forearm. COMPARISON: 08/08/2016 FINDINGS: Lumbar Spine: Bone Mineral Density 1.72 g/cm/cm,T score 4.5, previously 4 Left Femoral Neck: Bone Mineral Density 0.99 g/cm/cm, T score -0.4, previously 0 Left Hip: Bone Mineral Density 0.97 g/cm/cm,T score -0.3, previously 0.2 (T score greater or equal to -1.0: NORMAL) (T score from -1.1 to -2.4: OSTEOPENIA) (T score less than or equal to -2.5 to: OSTEOPOROSIS) Impression: Bone mineral density within normal limits. Patients with diagnosis of osteoporosis or osteopenia should have regular bone mineral density assess ment. For those eligible for Medicare, routine testing is allowed once every 2 years. Testing frequ ency can be increased for patients who have rapidly progressing disease or for those who are receivin g medical therapy to restore bone mass. Reviewed by: Anson Aguilera MD on 07/12/2022 1:57 PM PST Approved by: Anson Aguilera MD on 07/12/2022 1:57 PM PST Station ID: [id number]
== END 2022-07-12 10:39 | disposition home or self-care (01) ==
LOC: DI 10:38
PROVIDERS: ATTEND Physician Assistant
DX: N95.8 Other specified menopausal and perimenopausal disorders (principal)

== ENCOUNTER 2022-08-02 11:21 | Emergency (ER) | payer MEDICARE, OTHER ==
[2022-08-02 11:29] VITALS: BP 153/54
--- NOTE | 2022-08-02 11:56 | ED Physician Documentation ---
History of Present Illness - Stated complaint Stated Complaint: FALL - Chief complaint Chief Complaint: Trauma Ch/Bk - History obtained from History obtained from: Patient - History of Present Illness Timing: Today Pain level max: 5 Pain level now: 5 - Additonal information Additional information: 81-year-old female who presents to the emergency department stating that she was walking her dog today when the dog yanked on the leash, she lost her balance and fell striking her left ribs on a outside water faucet. Worse with movement, better with rest. No head, neck, back pain. No loss of consciousness. Does not take any blood thinners. 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 : None HEENT: None Psych: None Musculoskeletal: Osteoarthritis Derm: None - Past Surgical History Past Surgical History: Yes General: Colonoscopy Ortho: Knee replacement, Arthroscopic surgery /BUSINESS RISK ANALYST: Hysterectomy HEENT: Cataracts - Present Medications Home Medications: Ambulatory Orders Medication Instructions Recorded Confirmed Triamterene/Hydrochlorothiazid 0.5 tab PO DAILY 09/26/15 06/23/22 [Triamterene-Hctz 37.5-25 mg Cp] Glucosam/Chondr-Msm6/Manganese 1 tab PO DAILY 09/27/15 06/23/22 [Glucosamine-Chondroitin Sftgl] Losartan Potassium [Cozaar] 100 mg PO DAILY 06/23/22 06/23/22 Lidocaine Patch 5% [Lidoderm Patch] 1 patch TOP DAILY PRN #10 patch 08/02/22 - Allergies Allergies/Adverse Reactions: Allergies Allergy/AdvReac Type Severity Reaction Status Date / Time meperidine HCl * Allergy Nausea Verified 08/02/22 11:29 [From Demerol] Sulfa (Sulfonamide Allergy Unknown Verified 08/02/22 11:29 Antibiotics) Narcot AdvReac Mild Nausea Uncoded 08/02/22 11:29 - Social History Does the pt smoke?: No Smoking Status: Never smoker Does the pt drink ETOH?: Yes Does the pt have substance abuse?: No - Immunizations Immunizations are current?: Yes PD ED PE NORMAL - Vitals Vital signs reviewed: Yes - General General: Alert and oriented X 3, No acute distress - HEENT HEENT: PERRL, Moist mucous membranes, Other (No scalp hematomas. No palpable skull fractures. There is a small amount of dried blood on the left ear, from a fall yesterday. No significant hematoma. No laceration to repair.) - Neck Neck: Supple, no meningeal sign, No bony TTP - Cardiac Cardiac: RRR, Strong equal pulses - Respiratory Respiratory: No respiratory distress, Clear bilaterally - Abdomen Abdomen: Soft, Non tender, Non distended - Back Back: No CVA TTP, No spinal TTP, Other (No tenderness along the thoracic or lumbar spine. No step-off or deformity. There is tenderness along the left posterior ribs, approximately 9 through 12. No crepitus. Small ecchymosis.) - Derm Derm: Warm and dry - Neuro Neuro: Alert and oriented X 3, lumber marker 2-12 intact, No motor deficit, No sensory deficit, Normal speech Eye Opening: Spontaneous Motor: Obeys Commands Verbal: Oriented GCS Score: 15 - Psych Psych: Normal mood, Normal affect Results - Vitals Vitals: Vital Signs - 24 hr 08/02/22 11:24 Temperature 36.0 C L Heart Rate 54 L Respiratory 18 Rate Blood Pressure 153/54 H O2 Saturation 100 Oxygen O2 Source Room air - Rads (name of study) Left rib with chest x-ray Radiology: Final report received, See rad report PD Medical Decision Making - ED course Complexity details: reviewed results, re-evaluated patient, considered differential, d/w patient ED course: A left-sided rib series was ordered. There are no visible acute fractures. There are old healed fractures. Patient would like to avoid any narcotic pain medication. He states he will use Tylenol and Motrin at home. We will also place her on a Lidoderm patch. No pneumothorax or hemothorax. Patient counseled regarding signs and symptoms for which I believe and urgent re- evaluation would be necessary. Patient with good understanding of and agreement to plan and is comfortable going home at this time This document was made in part using voice recognition software. While efforts are made to proofread this document, sound alike and grammatical errors may occur. Departure - Departure Disposition: Home, Self Care Clinical Impression: Contusion of rib Qualifiers: Encounter type: initial encounter Laterality: left Qualified Code(s): S20.212A - Contusion of left front wall of thorax, initial encounter Condition: Good Instructions: ED Contusion Rib Follow-Up: Brett Chung MD [Primary Care Provider] - Within 1 week Prescriptions: Lidocaine Patch 5% [Lidoderm Patch] 1 patch TOP DAILY PRN #10 patch PRN Reason: pain Comments: Your x-ray does not show any acute fractures today. Please follow-up with your doctor for further care. You can use the lidocaine patches for pain. I would also recommend Motrin and/or Tylenol. Your prescriptions were sent to [facility] in [place]. Discharge Date/Time: 08/02/22 12:35
--- NOTE | 2022-08-02 12:22 | XRAY Report ---
PROCEDURE: Ribs w/PA Chest LT INDICATIONS: fall, rib pain TECHNIQUE: 3 views of the left ribs were acquired, along with a single view chest. COMPARISON: None FINDINGS: Surgical changes and devices: None. Bones and chest wall: Chronic-appearing deformity involving left anterior lateral upper to mid ribs a re seen. No gross acute left rib fracture. No suspicious bony lesions. Overlying soft tissues appear unremarkable. Lungs and pleura: No pleural effusions or pneumothorax. Lungs appear clear. Mediastinum: Mediastinal contours appear normal. Heart size is normal. IMPRESSION: Finding is suggestive of old healed left posterior lateral upper to mid rib fracture. No gross acute rib fracture. No acute cardiopulmonary pathology. Reviewed by: Bernardino Spivey MD on 08/02/2022 12:21 PM PST Approved by: Bernardino Spivey MD on 08/02/2022 12:21 PM PST Station ID: [id number]
[2022-08-02] MEDS ORDERED: LIDOCAINE PATCH 5% TOP STA (12:28)
== END 2022-08-02 12:35 | disposition home or self-care (01) ==
LOC: ED 11:21
DX: S20.212A Contusion of left front wall of thorax, initial encounter (principal); W18.30XA Fall on same level, unspecified, initial encounter; Y93.K1 Activity, walking an animal; I10 Essential (primary) hypertension
CPT/HCPCS: 71101; 99283; A9270

== ENCOUNTER 2023-01-14 09:03 | Outpatient (CLI) | payer MEDICARE, OTHER ==
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
== END 2023-01-14 09:04 | disposition home or self-care (01) ==
LOC: DI 09:03
PROVIDERS: ATTEND Internal Medicine
DX: R06.09 Other forms of dyspnea (principal); I10 Essential (primary) hypertension; R94.31 Abnormal electrocardiogram [ECG] [EKG]
CPT/HCPCS: 93350